=== PATIENT | female | born 1960 | race Caucasian/White ===

== ENCOUNTER 2021-08-04 15:18 | Inpatient (IN) ==
[2021-08-04] MEDS ORDERED: Ondansetron ODT 4 mg TAB 4 MG TAB SL PRN (16:10)
[2021-08-04] MEDS ORDERED: Ondansetron ODT 4 mg TAB 4 MG TAB ONE (16:11)
[2021-08-04] MEDS ORDERED: Lactated Ringers 1000 ml BAG IV.FLUID IV ONE (16:26)
[2021-08-04 16:43] LABS: ABS Lymphocytes 0.5 10^3/ul (1.0-4.8); ABS Monocytes 0.7 10^3/ul (0-0.8); ABS Neutrophils 6.1 10^3/ul (1.5-7.7); Hematocrit 36 % (35-47); Hemoglobin 12.2 g/dL (12.0-16.0); Lymphocyte % 7.3 %; Mean Corpuscular HGB Conc 34 g/dL (31-36); Mean Corpuscular Hemoglobin 33 pg (27-31); Mean Corpuscular Volume 97 fL (80-97); Mean Platelet Volume 7.4 fL (7.4-10.4); Platelet Count 123 10^3/uL (150-450); Red Blood Count 3.71 10^6 /uL (3.70-4.87); Red Cell Distribution Width 14 % (10-15); White Blood Count 7.3 10^3/uL (3.5-10.8)
[2021-08-04 16:59] LABS: Influenza A Molecular Negative (Negative); Influenza B Molecular Negative (Negative)
[2021-08-04 17:02] LABS: Troponin I 0.01 ng/mL (<0.03)
[2021-08-04 17:04] LABS: Albumin/Globulin Ratio 1.3 (1-3); C Reactive Protein 199.6 mg/L (<8.01); Total Bilirubin 0.9 mg/dL (0.2-1.0); eGFR CKD-EPI 33.6 (>60)
[2021-08-04 17:31] LABS: Rapid COVID-19 Molecular Undetected (Undetected)
[2021-08-04 17:34] LABS: Activated Partial Thrombo Time 30.4 seconds (26.0-38.0); INR 1.17 (0.86-1.15)
[2021-08-04] MEDS ORDERED: Cefepime 2 GM in Dextrose 2 GM/50 ML BAG IV ONE (18:41)
[2021-08-04 19:06] LABS: Urine Appearance Cloudy; Urine Bilirubin Negative (Negative); Urine Blood 3+ (Negative); Urine Color Yellow; Urine Glucose 3+(>=500 mg/dL) (Negative); Urine Ketones Negative (Negative); Urine Nitrite Negative (Negative); Urine Protein 1+(30 mg/dL) (Negative); Urine Specific Gravity 1.005 (1.002-1.030); Urine Urobilinogen Negative (Negative)
[2021-08-04 19:37] LABS: Urine Amorphous Crystals Present (Absent); Urine Bacteria 1+ (Absent); Urine Red Blood Cell 3+(>10/hpf) (Absent); Urine Squamous Epithelial Cell Present (Absent); Urine White Blood Cell 2+(11-20/hpf) (Absent)
[2021-08-04] MEDS ORDERED: Lactated Ringers 1000 ml BAG 1,000 ML IV ONE ×2 (21:06)
[2021-08-04] MEDS ORDERED: LORazepam 2 mg VIAL 1 ml IV PUSH PRN (21:10)
[2021-08-04] MEDS ORDERED: Lorazepam PYXIS KEY PRN (21:10)
[2021-08-04 22:42] LABS: Osmolality Serum 285 mOsm/kg (275-295)
[2021-08-04] MEDS: Enoxaparin 40 MG/0.4 ML SYR SUBCUT SCH (23:14)
[2021-08-04] MEDS ORDERED: Acetaminophen IV 1 GM/100ML 100 ML IV ONE (23:38)
[2021-08-05 00:42] LABS: Urine Osmo 303 mOsm/kg (150-1150)
[2021-08-05] MEDS: cefTRIAXone 1 gm/50 mL NS BAG 1 GM/50 ML BAG IVPB SCH (02:50)
[2021-08-05 06:38] LABS: ABS Lymphocytes 0.4 10^3/ul (1.0-4.8); ABS Monocytes 0.3 10^3/ul (0-0.8); ABS Neutrophils 2.4 10^3/ul (1.5-7.7); Eosinophil % 0.1 %; Hematocrit 29 % (35-47); Hemoglobin 10.1 g/dL (12.0-16.0); Lymphocyte % 14.4 %; Mean Corpuscular HGB Conc 35 g/dL (31-36); Mean Corpuscular Hemoglobin 34 pg (27-31); Mean Corpuscular Volume 97 fL (80-97); Red Cell Distribution Width 14 % (10-15); White Blood Count 3.1 10^3/uL (3.5-10.8)
[2021-08-05 06:53] LABS: Calcium 9.3 mg/dL (8.6-10.3); Magnesium 1.1 mg/dL (1.9-2.7); Potassium 3.9 mmol/L (3.5-5.0); eGFR CKD-EPI 43.4 (>60)
[2021-08-05] MEDS ORDERED: Magnesium Sulf 4 GM/100 ML IV 4,000 MG/100 ML BAG IVPB ONE (07:14)
[2021-08-05 07:27] LABS: Mean Platelet Volume 7.6 fL (7.4-10.4); Platelet Count 81 10^3/uL (150-450)
[2021-08-05] MEDS: Enoxaparin 40 MG/0.4 ML SYR SUBCUT SCH (20:25)
[2021-08-06] MEDS: cefTRIAXone 1 gm/50 mL NS BAG 1 GM/50 ML BAG IVPB SCH (03:54)
[2021-08-06 06:00] LABS: Hematocrit 29 % (35-47); Hemoglobin 9.9 g/dL (12.0-16.0); Mean Corpuscular HGB Conc 35 g/dL (31-36); Mean Corpuscular Hemoglobin 34 pg (27-31); Mean Corpuscular Volume 97 fL (80-97); Mean Platelet Volume 7.4 fL (7.4-10.4); Platelet Count 104 10^3/uL (150-450); Red Blood Count 2.96 10^6 /uL (3.70-4.87); Red Cell Distribution Width 14 % (10-15); White Blood Count 4.5 10^3/uL (3.5-10.8)
[2021-08-06 06:16] LABS: Calcium 9.1 mg/dL (8.6-10.3); Potassium 3.7 mmol/L (3.5-5.0); eGFR CKD-EPI 50.3 (>60)
[2021-08-06 08:05] LABS: Magnesium 1.7 mg/dL (1.9-2.7)
[2021-08-06] MEDS ORDERED: Magnesium Sulfate 2 gm BAG 2 GM/50 ML BAG IVPB ONE (08:25)
[2021-08-06] MEDS: Enoxaparin 40 MG/0.4 ML SYR SUBCUT SCH (19:56)
[2021-08-07] MEDS: cefTRIAXone 1 gm/50 mL NS BAG 1 GM/50 ML BAG IVPB SCH (02:59)
[2021-08-07 05:27] LABS: Hematocrit 29 % (35-47); Hemoglobin 9.9 g/dL (12.0-16.0); Mean Corpuscular HGB Conc 34 g/dL (31-36); Mean Corpuscular Hemoglobin 33 pg (27-31); Mean Corpuscular Volume 97 fL (80-97); Mean Platelet Volume 7.3 fL (7.4-10.4); Platelet Count 118 10^3/uL (150-450); Red Blood Count 2.99 10^6 /uL (3.70-4.87); Red Cell Distribution Width 14 % (10-15); White Blood Count 3.6 10^3/uL (3.5-10.8)
[2021-08-07 05:43] LABS: Magnesium 1.6 mg/dL (1.9-2.7); Potassium 3.6 mmol/L (3.5-5.0); eGFR CKD-EPI 66.9 (>60)
[2021-08-07] MEDS ORDERED: Magnesium Sulf 4 GM/100 ML IV 4,000 MG/100 ML BAG IVPB ONE (06:58)
[2021-08-07 11:37] VITALS: BP 118/76
[2021-08-07 17:53] LABS: Anaplasma phagocytophilum Negative (Negative); B. miyamotoi PCR, B Negative (Negative); Babesia divergens/MO-1 Negative (Negative); Babesia ducani Negative (Negative); Ehrlichia chaffeensis Negative (Negative); Ehrlichia ewingii/canis Negative (Negative); Ehrlichia muris eauclairensis Negative (Negative)
== END 2021-08-07 14:10 | disposition home or self-care (01) | DRG 720 ==
LOC: ED 15:18 → SUATTDRO 20:53 → EDHOLD 21:08 → MED 08-05 01:38
PROVIDERS: ADMIT Internal Medicine; ATTEND Internal Medicine